=== PATIENT | male | born 1945 | race Caucasian/White ===

== ENCOUNTER 2022-06-26 05:58 | Day surgery (SDC) | payer OTHER, SELFPAY ==
[2022-06-26] VITALS (26 sets, daily range): BP systolic 87–177; BP diastolic 53–88; PULSE 55–111; RESP 14–20; TEMP 35.4–36.9; O2SAT 92–97; BMI 28.0
[2022-06-26] MEDS: CELECOXIB 200 MG CAPSULE PO ×2 (06:43→21:13)
[2022-06-26] MEDS: OXYCODONE (CR) 10 MG TAB.ER.12H PO (06:44)
[2022-06-26] MEDS: SODIUM CHLORIDE 0.9 % (FLUSH) 10 ML SYRINGE IVF (06:45)
[2022-06-26] MEDS: LACTATED RINGERS 1000 ML 1,000 ML 100 ML IV (06:45)
[2022-06-26] MEDS: ACETAMINOPHEN 500 MG TABLET 1000 MG PO ×2 (06:45→18:28)
[2022-06-26] MEDS: MIDAZOLAM HCL 1 MG/ML inj IVP (07:29)
[2022-06-26] MEDS: fentaNYL 100 MCG/2 ML inj IVP (07:29)
--- NOTE | 2022-06-26 07:29 | SUR.PREOP ---
TIME?OUT:?0728 PT/rigoberto anand RN/dr. jody MDA?VERIFICATION?OF?SURGICAL?SITE right knee,?PROCEDURE,?AND?CONSENT OBTAINED?PRIOR?TO?INVASIVE?PROCEDURE.
[2022-06-26] MEDS: CEFAZOLIN 2 GM INJ IVP (07:52)
--- NOTE | 2022-06-26 08:18 | SUR.OPER ---
PATIENT QUESTIONS ANSWERED SATISFACTORILY PREOPERATIVELY.? PATIENT BROUGHT TO OR #2 PER CART AFTER BLOCK.? Patient positioned supine on OR #2 bed. The perioperative?team supported arms bilaterally on arm boards.? Final approval of positioning by surgeon.?
--- NOTE | 2022-06-26 09:01 | CRLHL7_ITS ---
For Patients: As a result of the Cures Act, medical imaging exams and procedure reports are released immediately into your electronic medical record. You may view this report before your referring provider. If you have questions, please contact your health care provider. Indication: Postop total knee arthroplasty. Technique: Two views. Comparison: None. Findings/Impression: Status post total knee arthroplasty. Prosthesis components are well aligned. No fracture. Subcutaneous gas. No radiopaque foreign body. Dictated by Paramjit Velazquez MD @ 06/26/2022 10:36:33 AM (Electronically Signed)
--- NOTE | 2022-06-26 09:06 | PM.ORPRC ---
Procedure Note Date of procedure: 06/26/22 Procedure: SURGEON: Eric Saini MD [employer] COUNTER MANAGER: KASSI Higgins PREOPERATIVE DIAGNOSIS: Right knee osteoarthritis POSTOPERATIVE DIAGNOSIS: Right knee osteoarthritis NAME OF OPERATION: Right total knee arthroplasty ANESTHESIA: Spinal ESTIMATED BLOOD LOSS: 0 mL COMPLICATIONS: None SPECIMENS: None DRAINS: None PREOPERATIVE ANTIBIOTICS: Ancef 1 g IMPLANTS: 1. J&J Attune # 5 posterior stabilized femur 2. # 5 fixed-bearing tibia 3. # 5 posterior stabilized, 5 mm fixed-bearing polyethylene 4. 38 patella INDICATIONS: The patient is a 76-year-old male with a longstanding history of severe, unrelenting right knee pain secondary to end-stage (grade IV) right knee osteoarthritis. Despite appropriate nonoperative management, including activity modification, anti-inflammatories, paux-lgg-[id number] pain medication, bracing, physical therapy, and injections they continue to have pain and disability. Operative intervention was offered. The risks, benefits and expected outcomes were discussed in detail. These included but were not limited to: Infection, bleeding, injury to blood vessel or nerve, venous thromboembolism. All questions were answered to their satisfaction. Use of an election assistant was necessary throughout the case for patient positioning and safety, soft tissue retraction, and closure. PROCEDURE: Spinal anesthesia was administered. The patient was placed supine on the operating table. The election assistant made sure the patient was positioned appropriately. The lower extremity was prepped and draped in the usual sterile fashion. The limb was exsanguinated with the Oliver bandage. The pneumatic tourniquet was inflated to 300 mmHg. A standard anterior incision was made with the knee in flexion. Subcutaneous dissection was sharply taken through fascial layer #1. Full-thickness medial and lateral flaps were elevated. The election assistant retracted the soft tissues and protected them throughout the case. A standard medial parapatellar approach was made. The patella was everted. The infrapatellar fat pad was preserved. The menisci and cruciate ligaments were sharply d?brided. Marginal osteophytes were d?brided with the rongeur. The drill was used to penetrate the femoral canal. The canal was aspirated and irrigated with pulse lavage. The intramedullary femoral guide was placed for a 5-degree valgus cut, removing 10 mm off the distal femur. The saw was used to make the cut. Whitesides line and the trans epicondylar axis were marked. The femoral sizing guide was pinned onto the distal femur. Three degrees of external rotation nicely parallels the transepicondylar axis. Pins were placed for posterior referencing. The four-in-one cutting guide was pinned onto the distal femur. The anterior, posterior, and chamfer cuts were made. The election assistant protected the collateral ligaments. The box cutting guide was pinned. The box cuts were made. The boxed trial was placed and was an excellent fit. Drill holes for the lugs were made. Attention was then turned to the proximal tibia. The extramedullary tibial guide was placed for a neutral varus/valgus cut with 5 degrees of posterior slope, removing 1 mm based off the medial tibial surface. The election assistant protected the collateral ligaments and the neurovascular bundle. The saw was used to make the cut. Trial components were placed. The knee was nicely balanced in both flexion and extension. Rotation of the tibial component was matched to the femur in full extension, matched to our tibial cutting pins, and marked with cautery. The trial components were removed. The tray was pinned by the election assistant and the drill and the punch were used. The tray was removed. The punch was used again. We placed a bone plug in the femoral canal. Attention was then turned to the patella. [place] patellar thickness was 20 for mm. The lobster claw resection guide was used with the 7.5 mm elvis. The saw was used to make the cut. Drill holes were made by the election assistant. The trial was placed and was an excellent fit. Cancellous surfaces were irrigated with pulse lavage and thoroughly dried by the election assistant. We cemented the tibial component, then the femoral component. A trial spacer was placed. The knee was brought into full extension. We then cemented the patellar component. Excessive cement was removed. The cement was allowed to harden. Any remaining excessive cement was removed with the osteotome. We impacted the 5 mm polyethylene onto the tibial tray. The knee was taken through a range of motion and was found to be nicely balanced in both flexion and extension. The patella tracks centrally. The election assistant did a three minute dilute Betadine solution soak. The election assistant irrigated the wound with 3 liters of normal saline via pulse lavage. The election assistant reapproximated the extensor mechanism with #1 Vicryl in an interrupted [id number] fashion. The election assistant then ran the extensor mechanism with a #1 PDO Stratafix. The election assistant closed the subcutaneous tissues with a 3-0 Stratafix and the skin with a running 3-0 Stratafix in a subcuticular fashion. Glue was used to seal the skin. The election assistant placed a dry dressing, STEFFANY stocking, and Polar Care. Sponge and needle counts were correct x2. The patient tolerated the procedure well. There were no apparent complications. They were carefully transferred to the hospital bed and taken to the postanesthesia care unit in satisfactory condition. PLAN: The patient will be mobilized with physical therapy. Aspirin will be used for DVT prophylaxis. They will be discharged to home once medically appropriate.
--- NOTE | 2022-06-26 09:36 | P.NB_ITS ---
Nerve Block Nerve Block Time Seen by Provider: 07:05 Date Seen: 06/26/22 Type of block requested by surgeon for post-operative analgesia: geniculars Side: right Time out performed: Yes Verification of patient name: Yes Verification of date of : Yes Site marking: site marked Name of person performing procedure: Carlos Camarena Continuous monitoring Was continuous monitoring of O2 sat, B/P, cardiac cath lab manager, recorded every 15 minutes?: Yes Procedure Checklist: sterile prep, needles and gloves Ultrasound guided. Images saved: No Medications given in 5ml increments after negative aspiration: Ropivicaine %: 0.5 mL: 10 Needle gauge: 25 Patient tolerated procedure well: Yes Block Charges Block Charge (with Pro Fee): Genicular Nerve Block Use of Ultrasound Machine for Block: No
--- NOTE | 2022-06-26 09:44 | P.NB_ITS ---
Nerve Block Nerve Block Time Seen by Provider: 07:05 Type of block requested by surgeon for post-operative analgesia: adductor canal Side: right Time out performed: Yes Verification of patient name: Yes Verification of date of : Yes Site marking: site marked Name of person performing procedure: Carlos Camarena Continuous monitoring Was continuous monitoring of O2 sat, B/P, property assessment monitor, recorded every 15 minutes?: Yes Procedure Checklist: sterile prep, needles and gloves Ultrasound guided. Images saved: Yes Medications given in 5ml increments after negative aspiration: Ropivicaine %: 0.5 mL: 20 Needle gauge: 20 Decadron (mg): 10 Precedex (mcg): 25 Patient tolerated procedure well: Yes Block Charges Block Charge (with Pro Fee): Femoral Nerve Use of Ultrasound Machine for Block: Yes- US Guidance/pain block
--- NOTE | 2022-06-26 10:01 | W.ANESCHARGE ---
Anesthesia Charges Start Date/Time Anesthesia Start Date: 06/26/22 Anesthesia Start Time: 07:38 Stop Date/Time Anesthesia Stop Date: 06/26/22 Anesthesia Stop Time: 09:46 Summary Emergency: No Extremes of Age: Over 69-CPT [id number]
--- NOTE | 2022-06-26 10:40 | SUR.PHASEI ---
patient met anesthesia criteria for discharge.
[2022-06-26] MEDS: LACTATED RINGERS 1000 ML 1,000 ML 75 ML IV (11:39)
[2022-06-26] MEDS: CEFAZOLIN 1 GM in 0.9 % SODIUM CHLORIDE Mini-bag 100 ML IVPB ×2 (13:46→21:54)
--- NOTE | 2022-06-26 17:51 | PC.NURSE ---
Shift Summary: patient pleasant and cooperative. Up with one assist, walker and gait belt. Denies pain, refusing pain medication at this time. Vitals stable and WNL. Voided x1 since surgery. Dressing over right knee C/D/I with cryocuff on. Using call light appropriately. Lung sounds clear. Family at bedside following surgery.
[2022-06-26] MEDS: OXYCODONE 5 MG TABLET PO ×2 (18:30→22:44)
--- NOTE | 2022-06-26 18:33 | P.IMCN_ITS ---
Date of Consult Consult date: 06/26/22 Primary Care Provider: Deep Batista MD Consult Narrative Narrative: HOSPITALIST CONSULT Hospital Day # 1 Post OP Day #0 NAME OF OPERATION: Right total knee arthroplasty ANESTHESIA: Spinal ESTIMATED BLOOD LOSS: 0 mL COMPLICATIONS: None SPECIMENS: None DRAINS: None The hospital medicine team was asked by Orthopedic surgery team to manage the patient's new history of diffuse coronary artery disease, possible PARDEEP, hypertension, pre diabetes. Patient underwent a right total knee arthroplasty earlier today. There were no obvious perioperative concerns or questions. He is resting fairly comfortably in his hospital room tonight. PAST MEDICAL HISTORY: Coronary artery disease/nonischemic cardiomyopathy - cath 06/18: The left anterior descending artery contained diffuse qold-uh-igugkarq disease in the 30- 50% range, but no focal significant stenosis nor flow limitations. The circumflex artery contained mild disease. The right coronary was dominant with mild disease. As the patient is asymptomatic and has no angiographically severe disease, no intervention was indicated. PARDEEP? Sleep study pending. Hypertension Questionable diabetes/prediabetes Non-Hodgkin's lymphoma, 2005 Distant tobacco use Glaucoma MEDICATIONS: Atorvastatin 40 mg nightly 81 mg daily Metoprolol succinate 25 mg daily Eyedrops for glaucoma ALLERGIES: Flu vaccine SURGICAL HISTORY: Left eye surgery Left knee replacement Hernia repair Previous left knee arthroscopy FAMILY HISTORY: Reviewed in EMR HABITS: Quit smoking the but previous to this he was 2 packs per day Social alcohol SOCIAL HISTORY: REVIEW OF SYSTEMS: 12-point ROS completed with patient and negative unless otherwise stated in HPI or below. PHYSICAL EXAM: CODE STATUS: CONSTITUTIONAL: Conversive, good historian. A/O. Knows setting and context. VITAL SIGNS: see record. HEENT: Normocephalic, atraumatic. PERRL, EOMI, conjunctivae pink, no scleral icterus. Ears and nose externally normal. Pharynx normal. NECK: No JVD. No carotid bruit, no thyromegaly, no adenopathy. CHEST: Clear to auscultation bilaterally HEART: No harsh murmurs. S1/S2. ABDOMEN: Flat, soft, nontender. Normal bowel sounds. Moderately obese. EXTREMITIES: No edema. MUSCULOSKELETAL: Surgical dressing noted on the right knee. No seepage. Neurovascularly intact right lower extremity. NEURO: Cranial nerves intact. Normal affect. No gross deficits. Speech intelligible. SKIN: No rashes, petechiae, concerning changes PSYCHIATRIC: Euthymic. INVESTIGATIONS: EMR Reviewed echo april 2022 Final Impressions: 1. Mildly increased LV size, borderline wall thickness, mildly reduced global systolic function with an estimated EF of 45 - 50%. 2. Mild global hypokinesis with the anterior and septal arnold mostly affected. 3. The mitral valve is sclerotic, mild mitral regurgitation. 4. Pulmonary artery is mildly dilated. 5. No pericardial effusion. DISPOSITION: DVT: GI: PO intake PFSH [facility] Medical History (Updated 06/26/22 @ 18:38 by Sandy Busch MD) Glaucoma Hypertension Inguinal hernia, left Non-Hodgkin lymphoma Nonischemic cardiomyopathy Prediabetes Surgical History (Updated 06/26/22 @ 12:09 by Daiana Smith PA-C) History of cataract extraction History of hernia repair History of knee surgery History of total left knee replacement Family History (Updated 05/22/22 @ 12:41 by Olive Orellana RN) Brother Heart attack Multiple sclerosis Abdominal aortic aneurysm Father Heart attack Social History (Updated 05/30/22 @ 09:30 by Carlene Collier) Narrative: , 2 kids, retired, non-smoker, social EtOH Smoking Status: Former smoker What tobacco products do you use: cigarettes Smoking quit date/years: >15 years ago Do you use any of these nicotine containing products: None How often do you have a drink containing alcohol: 4 or more times a week Alcohol type: beer and hard liquor How many standard drinks containing alcohol do you have on a typical day: 1 or 2 How often do you have six or more drinks on one occasion: Never AUDIT-C Alcohol total score: 4 Non-prescribed substance use: denies use Non-prescribed substance use details: OTC: Aleve Caffeine: Yes (2 cups/day; 1 can 3-4x/week) Meds Home Medications and Allergies Home Medications Medication Instructions Recorded Confirmed Type aspirin 81 mg tablet,delayed 81 mg PO DAILY 06/25/22 06/26/22 History release (Adult Low Dose Aspirin) latanoprostene bunod 0.024 % eye 1 drp ophthalmic (eye) DAILY 06/25/22 06/26/22 History drops (Vyzulta) metoprolol succinate 25 mg 25 mg PO DAILY 06/25/22 06/26/22 History tablet,extended release 24 hr dorzolamide 2 % eye drops 1 drp ophthalmic (eye-right) BID 06/26/22 06/26/22 History latanoprost 0.005 % eye drops 1 drp ophthalmic (eye-right) HS 06/26/22 06/26/22 History Allergies Allergy/AdvReac Type Severity Reaction Status Date / Time influenza A (H1N1) virus Allergy Mild Rash Verified 06/26/22 10:49 vaccine [id number] 2008 [From influenza A (H1N1)] Exam Const: Vital Signs, click to edit/add: Vital Signs - 24 hr 06/26/22 07:10 06/26/22 07:26 06/26/22 07:30 Temperature 97.4 F L Pulse Rate 73 75 72 Pulse Rate [Pulse Oximeter] Respiratory Rate 16 16 16 Blood Pressure 155/88 H 177/85 H 162/78 H Blood Pressure [Le ft Arm] Pulse Oximetry 97 97 95 Oxygen Delivery Me thod Room Air Room Air Room Air Oxygen Flow Rate 06/26/22 09:42 06/26/22 09:45 06/26/22 09:49 Temperature 98 F 98 F 98 F Pulse Rate 55 L 57 L 61 Pulse Rate [Pulse Oximeter] Respiratory Rate 14 14 16 Blood Pressure 87/53 L 90/54 L 104/61 Blood Pressure [Le ft Arm] Pulse Oximetry 94 95 95 Oxygen Delivery Me thod Nasal Cannula Nasal Cannula Nasal Cannula Oxygen Flow Rate 4 4 4 06/26/22 09:54 06/26/22 10:00 06/26/22 10:05 Temperature 98 F 98 F 98 F Pulse Rate 64 72 63 Pulse Rate [Pulse Oximeter] Respiratory Rate 16 15 14 Blood Pressure 100/63 113/64 128/71 Blood Pressure [Le ft Arm] Pulse Oximetry 95 96 95 Oxygen Delivery Me thod Nasal Cannula Nasal Cannula Nasal Cannula Oxygen Flow Rate 4 4 4 06/26/22 10:10 06/26/22 10:15 06/26/22 10:25 Temperature 98 F 98 F 97.2 F L Pulse Rate 67 70 71 Pulse Rate [Pulse Oximeter] Respiratory Rate 15 14 14 Blood Pressure 130/73 129/72 114/70 Blood Pressure [Le ft Arm] Pulse Oximetry 96 95 94 Oxygen Delivery Me thod Nasal Cannula Nasal Cannula Room Air Oxygen Flow Rate 4 4 06/26/22 10:20 06/26/22 10:36 06/26/22 10:45 Temperature 98 F 95.7 F L 95.7 F L Pulse Rate 69 Pulse Rate [Pulse Oximeter] 73 77 Respiratory Rate 14 18 18 Blood Pressure 130/72 Blood Pressure [Le ft Arm] 132/84 134/73 Pulse Oximetry 92 93 96 [facility] Room Air Oxygen Flow Rate 06/26/22 10:36 06/26/22 11:00 06/26/22 11:15 Temperature 95.7 F L 96.9 F L 95.9 F L Pulse Rate 73 Pulse Rate [Pulse Oximeter] 74 83 Respiratory Rate 18 18 18 Blood Pressure Blood Pressure [Le ft Arm] 132/84 138/82 141/79 H Pulse Oximetry 93 92 Oxygen Delivery Wi thod Room Air Room Air Oxygen Flow Rate 06/26/22 11:00 06/26/22 12:00 06/26/22 12:30 Temperature 95.9 F L 97.1 F L 97 F L Pulse Rate Pulse Rate [Pulse Oximeter] 74 83 92 Respiratory Rate 18 18 20 Blood Pressure Blood Pressure [Le ft Arm] 138/82 137/83 151/88 H Pulse Oximetry 93 96 94 Oxygen Delivery Wi thod Room Air Room Air Room Air Oxygen Flow Rate 06/26/22 13:30 06/26/22 14:30 06/26/22 14:30 Temperature 97.5 F L 97.1 F L 97.1 F L Pulse Rate Pulse Rate [Pulse Oximeter] 95 110 H 110 H Respiratory Rate 18 18 18 Blood Pressure Blood Pressure [Le ft Arm] 143/81 H 147/84 H 147/84 H Pulse Oximetry 94 94 94 [facility] Room Air Room Air Oxygen Flow Rate 06/26/22 15:30 06/26/22 17:00 Temperature 97.9 F 97.7 F Pulse Rate Pulse Rate [Pulse Oximeter] 106 H 106 H Respiratory Rate 18 18 Blood Pressure Blood Pressure [Le ft Arm] 111/80 106/69 Pulse Oximetry 93 94 Oxygen Delivery Me thod Room Air Room Air Oxygen Flow Rate Assessment and Plan Assessment and plan (1) Status post right knee replacement: Status: Acute Assessment and Plan: Hospital medicine is happy to follow this patient through to discharge. He recently was diagnosed with a nonischemic, nonobstructive cardiomyopathy. His EF was 45-50%. His coronary CT scan was abnormal. His stress test was abnormal. Ultimately his catheterization showed diffuse disease. No intervention was warranted. Lifestyle changes were being pursued. I expect a b enign postoperative period. However I will keep him on telemetry until discharge. (2) Nonischemic cardiomyopathy: Status: Acute Assessment and Plan: recent cards eval reviewed. EF 45-50% in 05/18 and resultant cath shows nonobstructive/nonishcemic cardiomyopajthy - statin/aspirin. lifestyle modifcation -Telemetry and resume statin (3) Hypertension: Status: Acute Assessment and Plan: Continue to follow avoiding hypotension but maintaining cardioprotection as much as possible (4) Glaucoma: Status: Acute Assessment and Plan: Noted. Following. (5) Prediabetes: Status: Acute Assessment and Plan: Noted. Following.
[2022-06-26 19:38] LABS: Sodium* 135 mmol/L (135-149)
[2022-06-26] MEDS: SENNOSIDES 1 TAB TABLET 2 TAB PO (21:13)
[2022-06-26] MEDS: DORZOLAMIDE HCL 2 % OPHTH DROP 1 DROP EYE-RIGHT (21:14)
[2022-06-26] MEDS: ASPIRIN 81 MG TABLET EC PO (21:14)
[2022-06-26] MEDS: LATANOPROST 0.005% OPHTH 1 DROP EYE-RIGHT (21:14)
[2022-06-27] MEDS: ACETAMINOPHEN 500 MG TABLET 1000 MG PO ×3 (00:09→12:28)
[2022-06-27] MEDS: OXYCODONE 5 MG TABLET PO ×3 (01:52→12:28)
[2022-06-27 03:00] VITALS: BP 156/71; PULSE 84; RESP 18; TEMP 36.6; O2SAT 96
[2022-06-27] MEDS: CEFAZOLIN 1 GM in 0.9 % SODIUM CHLORIDE Mini-bag 100 ML IVPB (05:58)
--- NOTE | 2022-06-27 06:48 | PC.NURSE ---
END OF SHIFT NOTE: PT PLEASANT AND COOPERATIVE. TELE READS SINUS TACHY WITH 1ST DEGREE HB AND PVC?S. DRESSING TO RIGHT KNEE CDI. PT DENIES CP, SOB, N/V. PT RATES RIGHT KNEE PAIN 5-10/10 WITH RELIEF FROM SCHEDULED AND PRN PAIN MEDS, ELEVATION AND ACTIVE ICE. AMBULATES WITH WALKER, GB, SBA
[2022-06-27 06:52] LABS: Basophils Percent Auto 0.1 % (0.0-3.0); Eosinophils Percent Auto 0.1 % (0.0-7.0); Hematocrit 36.9 % (37.0-53.0); Immature Granulocytes Abs Auto 0.04 K/uL (0.00-0.30); Lymphocytes Percent Auto 10.6 % (20-44); Mean Corpuscular HGB Conc 33 gm/dL (32-36); Mean Corpuscular Hemoglobin 31 pg (26-34); Mean Corpuscular Volume 95 fL (80-100); Monocytes Percent Auto 12.8 % (0.0-11.0); Neutrophils Percent Auto 76.1 % (42.0-72.0); Platelet Count* 291 K/uL (140-440); RDW Coefficient of Variation % 12.8 % (11.5-15.5); White Blood Count* 14.38 K/uL (4.50-11.00)
[2022-06-27 07:13] LABS: Slide Review Reflex No
[2022-06-27 07:14] LABS: Potassium* 4.7 mmol/L (3.6-5.1)
[2022-06-27 07:17] LABS: Blood Urea Nitrogen* 24 mg/dL (7-30); Est. Creatinine Clearance* 55.83; Estimated Glomerular Filt Rate 78 ml/min
[2022-06-27] MEDS: DORZOLAMIDE HCL 2 % OPHTH DROP 1 DROP EYE-RIGHT (07:19)
[2022-06-27 07:22] LABS: Prothrombin Time 14.6 Seconds
[2022-06-27 07:25] VITALS: PULSE 71
[2022-06-27 07:32] VITALS: BP 181/97; PULSE 79; RESP 18; TEMP 36.4; O2SAT 98
--- NOTE | 2022-06-27 08:51 | PM.ORPN ---
Subjective Subjective Time Seen by Provider: 07:30 Date Seen: 06/27/22 Principal diagnosis: Status post right total knee replacement Interval history: Benito is comfortable this morning. He will be discharging to home today. He is comfortable in his recliner. He is having breakfast. Ortho Exam Narrative Exam Narrative: Alert and oriented x3. Patient is in no acute distress. Converses without labored breathing. Hearing is grossly intact. Ambulates with a walker. Examination of right knee shows the dressing is intact. Mild effusion. Mild soft tissue edema about the right knee. Bilateral calves are soft and nontender. Strong quad control. CMS intact right lower extremity. Const Vital Signs, click to edit/add: Vital Signs - 24 hr 06/26/22 09:42 06/26/22 09:45 06/26/22 09:49 Temperature 98 F 98 F 98 F Pulse Rate 55 L 57 L 61 Pulse Rate [Pulse Oximeter] Respiratory Rate 14 14 16 Blood Pressure 87/53 L 90/54 L 104/61 Blood Pressure [Left Arm] Pulse Oximetry 94 95 95 Oxygen Delivery Method Nasal Cannula Nasal Cannula Nasal Cannula Oxygen Flow Rate 4 4 4 06/26/22 09:54 06/26/22 10:00 06/26/22 10:05 Temperature 98 F 98 F 98 F Pulse Rate 64 72 63 Pulse Rate [Pulse Oximeter] Respiratory Rate 16 15 14 Blood Pressure 100/63 113/64 128/71 Blood Pressure [Left Arm] Pulse Oximetry 95 96 95 Oxygen Delivery Method Nasal Cannula Nasal Cannula Nasal Cannula Oxygen Flow Rate 4 4 4 06/26/22 10:10 06/26/22 10:15 06/26/22 10:25 Temperature 98 F 98 F 97.2 F L Pulse Rate 67 70 71 Pulse Rate [Pulse Oximeter] Respiratory Rate 15 14 14 Blood Pressure 130/73 129/72 114/70 Blood Pressure [Left Arm] Pulse Oximetry 96 95 94 Oxygen Delivery Method Nasal Cannula Nasal Cannula Room Air Oxygen Flow Rate 4 4 06/26/22 10:20 06/26/22 10:36 06/26/22 10:45 Temperature 98 F 95.7 F L 95.7 F L Pulse Rate 69 Pulse Rate [Pulse Oximeter] 73 77 Respiratory Rate 14 18 18 Blood Pressure 130/72 Blood Pressure [Left Arm] 132/84 134/73 Pulse Oximetry 92 93 96 Oxygen Delivery Method Room Air Room Air Room Air Oxygen Flow Rate 06/26/22 10:36 06/26/22 11:00 06/26/22 11:15 Temperature 95.7 F L 96.9 F L 95.9 F L Pulse Rate 73 Pulse Rate [Pulse Oximeter] 74 83 Respiratory Rate 18 18 18 Blood Pressure Blood Pressure [Left Arm] 132/84 138/82 141/79 H Pulse Oximetry 93 92 Oxygen Delivery Method Room Air Room Air Oxygen Flow Rate 06/26/22 11:00 06/26/22 12:00 06/26/22 12:30 Temperature 95.9 F L 97.1 F L 97 F L Pulse Rate Pulse Rate [Pulse Oximeter] 74 83 92 Respiratory Rate 18 18 20 Blood Pressure Blood Pressure [Left Arm] 138/82 137/83 151/88 H Pulse Oximetry 93 96 94 Oxygen Delivery Method Room Air Room Air Room Air Oxygen Flow Rate 06/26/22 13:30 06/26/22 14:30 06/26/22 14:30 Temperature 97.5 F L 97.1 F L 97.1 F L Pulse Rate Pulse Rate [Pulse Oximeter] 95 110 H 110 H Respiratory Rate 18 18 18 Blood Pressure Blood Pressure [Left Arm] 143/81 H 147/84 H 147/84 H Pulse Oximetry 94 94 94 Oxygen Delivery Method Room Air Room Air Room Air Oxygen Flow Rate 06/26/22 15:30 06/26/22 17:00 06/26/22 19:00 Temperature 97.9 F 97.7 F 98.5 F Pulse Rate Pulse Rate [Pulse Oximeter] 106 H 106 H 111 H Respiratory Rate 18 18 18 Blood Pressure Blood Pressure [Left Arm] 111/80 106/69 127/83 Pulse Oximetry 93 94 95 Oxygen Delivery Method Room Air Room Air Room Air Oxygen Flow Rate 06/26/22 22:26 06/26/22 23:00 06/27/22 03:00 Temperature 98.3 F 97.8 F Pulse Rate 103 H Pulse Rate [Pulse Oximeter] 102 H 84 Respiratory Rate 16 18 Blood Pressure Blood Pressure [Left Arm] 134/79 156/71 H Pulse Oximetry 95 96 Oxygen Delivery Method Room Air Room Air Oxygen Flow Rate 06/27/22 07:32 Temperature 97.6 F Pulse Rate Pulse Rate [Pulse Oximeter] 79 Respiratory Rate 18 Blood Pressure Blood Pressure [Left Arm] 181/97 H Pulse Oximetry 98 Oxygen Delivery Method Room Air Oxygen Flow Rate Assessment and Plan Assessment and plan (1) Status post right knee replacement: Problem details: 06/26/2022 Status: Acute Assessment and Plan: Plan for discharge is today to home if they meet discharge criteria. DVT prophylaxis includes aspirin 81 mg twice daily x1 month, Donny stockings x1 month may remove for 1 hr per day, frequent ambulation Remove dressing in 1 week. Observe wound and phone Orthopedics with any questions or concerns Return to clinic in 1 week for a wound check Return to clinic in [address] Saini Minimize narcotic use. Wean off and discontinue soon as possible. Activities as tolerated. No strenuous activity. Outpatient physical therapy as scheduled. Ice and elevate the operative extremity. No restriction on ice. (2) Nonischemic cardiomyopathy: Status: Acute (3) Hypertension: Status: Acute (4) Glaucoma: Status: Acute (5) Prediabetes: Status: Acute
[2022-06-27] MEDS: METOPROLOL SUCCINATE (XL) 25 MG TAB PO (08:59)
[2022-06-27] MEDS: SENNOSIDES 1 TAB TABLET 2 TAB PO (08:59)
[2022-06-27] MEDS: CELECOXIB 200 MG CAPSULE PO (08:59)
[2022-06-27] MEDS: ASPIRIN 81 MG TABLET EC PO (10:04)
[2022-06-27 11:21] LABS: Sodium* 138 mmol/L (135-149)
--- NOTE | 2022-06-27 13:30 | PC.NURSE ---
Discharge-- Pleasant and cooperative, alert and oriented patient discharged to home via wheelchair with at approximately 1230. VSS and pt is afebrile. SpO2 maintained >90% on RA. Pain appears well managed with Oxycodone and tylenol. Dressing to right knee is C/D/I and CMS WNL. LS CTA. Telemetry showed NSR with occasional PVCs. He denied nausea and ate 100% of a regular diet for 2 meals today without difficulty. BS+ x4 and pt is passing flatus. He was up to BR and chair and ambulated with PT with assist of 1, belt and walker and tolerated it very well. Discharge education was provided including diagnosis info, symptoms to report, medications and follow up plan. All questions answered. SL was removed with tip intact.
== END 2022-06-27 12:30 | disposition home or self-care (01) ==
LOC: OR 12:07 → MEDSURG 14:16
PROVIDERS: PCP Family Medicine; Visit Provider Orthopaedic Surgery
PROC: (CPT 27447; principal; 2022-06-26 07:30)
DX: M17.11 Unilateral primary osteoarthritis, right knee (principal); I10 Essential (primary) hypertension; I25.10 Atherosclerotic heart disease of native coronary artery without angina pectoris; R73.03 Prediabetes; I42.8 Other cardiomyopathies; Z85.72 Personal history of non-Hodgkin lymphomas; H40.9 Unspecified glaucoma
CPT/HCPCS: 27447; 01402; 36415; 64447; 64454; 73560; 76942; 82565; 84132; 84295; 84520; 85025; 85610; 97110; 97116; 97161; 97165; 97530; 99100; A9270; C1776; J0690; J1100; J2250; J2370; J2704; J2795; J3010; J7120

== ENCOUNTER 2022-07-04 11:36 | Outpatient (CLI) | payer MEDICARE, SELFPAY ==
--- NOTE | 2022-07-04 11:00 | CRLHL7_ITS ---
For Patients: As a result of the Century Cures Act, medical imaging exams and procedure reports are released immediately into your electronic medical record. You may view this report before your referring provider. If you have questions, please contact your health care provider. Indication: Neck pain and swelling Technique: Sonographic evaluation the right lower extremity deep venous system was performed. Grayscale, grayscale compression, color Doppler, spectral Doppler augmentation technique was utilized as per protocol. Comparison: None Findings: The study is positive for right lower extremity deep venous thrombosis. Partially occlusive DVT identified involving the inferior right popliteal vein and in 1 of the 2 right posterior tibial veins. Partially occlusive clot involving the peroneal veins. The deep venous system proximal to the popliteal on the right is normal. The left common femoral vein is normal. Impression: Right lower extremity deep venous thrombosis as described. Dictated by Dexter Cohn MD @ 07/04/2022 1:28:23 PM (Electronically Signed)
== END 2022-07-04 11:37 | disposition home or self-care (01) ==
LOC: US 11:38
PROVIDERS: PCP Family Medicine; Visit Provider Physician Assistant
DX: M54.2 Cervicalgia (principal); I82.621 Acute embolism and thrombosis of deep veins of right upper extremity; M79.89 Other specified soft tissue disorders
CPT/HCPCS: 93971